=== PATIENT | female | born 1950 | race Caucasian/White ===

== ENCOUNTER → 2017-12-08 13:55 | Outpatient (CLI) | payer OTHER ==
[~2017-12-08 13:55] MED LIST: CLARINEX5 MG/TAB; PREDNISOLONE5 MG
== END | disposition home or self-care (01) ==
LOC: LAB 13:55
DX: E03.8 Other specified hypothyroidism (principal); E78.2 Mixed hyperlipidemia; E59 Dietary selenium deficiency; E11.9 Type 2 diabetes mellitus without complications; I10 Essential (primary) hypertension

== ENCOUNTER 2017-12-08 14:41 | Outpatient (CLI) | payer OTHER | END 2017-12-08 14:47 | disposition home or self-care (01) | LOC: RAD 14:41 | DX: M54.12 Radiculopathy, cervical region (principal) ==

== ENCOUNTER 2018-03-09 12:14 | Outpatient (CLI) | payer OTHER | END 2018-03-09 12:21 | disposition home or self-care (01) | LOC: LAB 12:14 | DX: R14.3 Flatulence (principal); K30 Functional dyspepsia; Z86.010 Personal history of colon polyps; E78.4 Other hyperlipidemia ==

== ENCOUNTER 2018-04-07 14:29 | Outpatient (CLI) | payer OTHER | END 2018-04-07 14:42 | disposition home or self-care (01) | LOC: SONOGRAMA 14:29 | DX: R10.10 Upper abdominal pain, unspecified (principal) ==

== ENCOUNTER 2018-04-08 09:29 | Outpatient (CLI) | payer OTHER | END 2018-04-08 09:47 | disposition home or self-care (01) | LOC: TOM 09:29 | DX: R14.3 Flatulence (principal); K30 Functional dyspepsia; R10.10 Upper abdominal pain, unspecified | CPT/HCPCS: 74178; Q9965 ==

== ENCOUNTER 2018-04-14 08:18 | Outpatient (CLI) | payer OTHER | END 2018-04-14 08:29 | disposition home or self-care (01) | LOC: NUCLEAR 08:18 | DX: R14.3 Flatulence (principal); E11.8 Type 2 diabetes mellitus with unspecified complications; R07.89 Other chest pain; R53.83 Other fatigue; R10.10 Upper abdominal pain, unspecified; K30 Functional dyspepsia | CPT/HCPCS: 78264; 93306; A9541 ==

== ENCOUNTER → 2018-04-14 | Outpatient (CLI) | payer OTHER | END | disposition home or self-care (01) | LOC: MRI 07:30 | DX: M54.2 Cervicalgia (principal); G50.0 Trigeminal neuralgia | CPT/HCPCS: 70551 ==

== ENCOUNTER → 2018-08-13 | Outpatient (CLI) | payer OTHER | END | disposition home or self-care (01) | LOC: SONOGRAMA 10:01 | DX: R10.10 Upper abdominal pain, unspecified (principal) ==

== ENCOUNTER 2019-02-08 10:32 | Outpatient (CLI) | payer OTHER | END 2019-02-08 10:44 | disposition home or self-care (01) | LOC: LAB 10:32 | DX: K31.84 Gastroparesis (principal); Z86.010 Personal history of colon polyps; R14.3 Flatulence; Q44.6 Cystic disease of liver ==

== ENCOUNTER 2019-02-08 11:28 | Outpatient (CLI) | payer OTHER | END 2019-02-08 14:31 | disposition home or self-care (01) | LOC: MRI 11:28 | DX: K31.84 Gastroparesis (principal); Z86.010 Personal history of colon polyps; R14.3 Flatulence; Q44.6 Cystic disease of liver | CPT/HCPCS: 74183; A9579 ==

== ENCOUNTER 2020-05-01 11:35 | Outpatient (CLI) | payer OTHER | END 2020-05-01 11:40 | disposition home or self-care (01) | LOC: RAD 11:35 | PROVIDERS: ATTEND Internal Medicine Cardiovascular Disease | DX: G89.11 Acute pain due to trauma (principal) ==

== ENCOUNTER 2021-01-23 11:23 | Outpatient (CLI) | payer OTHER | END 2021-01-23 11:32 | disposition home or self-care (01) | LOC: MAMO-SONO 11:23 | PROVIDERS: ATTEND Internal Medicine Cardiovascular Disease | DX: Z12.31 Encounter for screening mammogram for malignant neoplasm of breast (principal); N64.59 Other signs and symptoms in breast ==

== ENCOUNTER 2021-02-05 15:16 | Outpatient (CLI) | payer OTHER | END 2021-02-05 15:20 | disposition home or self-care (01) | LOC: LAB 15:16 | PROVIDERS: ATTEND Radiology Diagnostic Radiology | DX: N20.0 Calculus of kidney (principal) ==

== ENCOUNTER 2021-02-06 10:47 | Outpatient (CLI) | payer OTHER | END 2021-02-06 10:58 | disposition home or self-care (01) | LOC: MRI 10:47 | PROVIDERS: ATTEND Internal Medicine Gastroenterology | DX: K86.2 Cyst of pancreas (principal); Q44.6 Cystic disease of liver | CPT/HCPCS: 74183; A9575 ==